=== PATIENT | female | born 1975 | race Caucasian/White ===

== ENCOUNTER 2021-10-01 04:40 | Emergency (ER) | payer MEDICAID ==
[~2021-10-01] VITALS: Ht 165.1 cm; Wt 61.4 kg
[2021-10-01 04:44] VITALS: BP 120/90
--- NOTE | 2021-10-01 06:29 | NUR ---
PT SEEN IN TRIAGE BY DR. PEREZ.
[2021-10-01] MEDS ORDERED: ibuprofen tablet 400 MG TABLET PO ONE (06:35)
== END 2021-10-01 06:41 | disposition home or self-care (01) ==
LOC: ER 04:42
DX: F15.10 Other stimulant abuse, uncomplicated (principal); M54.50 Low back pain, unspecified; G89.29 Other chronic pain; F12.90 Cannabis use, unspecified, uncomplicated; Z56.0 Unemployment, unspecified; Z59.00 Homelessness unspecified; Z72.89 Other problems related to lifestyle; Z88.0 Allergy status to penicillin
CPT/HCPCS: 99282

== ENCOUNTER 2021-11-02 23:09 | Emergency (ER) | payer MEDICAID ==
[~2021-11-02] VITALS: Ht 172.7 cm; Wt 75.0 kg
[2021-11-02 23:26] VITALS: BP 106/45
== END 2021-11-02 23:44 | disposition home or self-care (01) ==
LOC: ER 23:09
DX: F15.10 Other stimulant abuse, uncomplicated (principal); G89.29 Other chronic pain; F12.90 Cannabis use, unspecified, uncomplicated; Z59.00 Homelessness unspecified; Z56.0 Unemployment, unspecified; Z72.89 Other problems related to lifestyle; Z88.0 Allergy status to penicillin
CPT/HCPCS: 99283

== ENCOUNTER 2021-12-20 12:29 | Emergency (ER) | payer MEDICAID ==
[~2021-12-20] VITALS: Ht 167.6 cm; Wt 63.0 kg
[2021-12-20 13:27] VITALS: BP 103/71
[2021-12-20] MEDS ORDERED: LIDOcaine 1% W/epiNEPHrine 1:100,000 20ml vial IJ ONE (15:15)
[2021-12-20] MEDS ORDERED: TETanus/Pertussis (Acell)/Diphther VAC/PF (Tdap-Adult) 0.5ml syringe IMVAC ONE (15:15)
[2021-12-20] MEDS ORDERED: sulfamethoxazole/trimethoprim DS (800/160mg) tablet PO ONE (15:15)
--- NOTE | 2021-12-20 15:25 | NUR ---
po med given im given liodcane placed on bedside table for er provider
[2021-12-20] MEDS ORDERED: SULF1TAB45 PO (15:50)
[2021-12-20] MEDS ORDERED: acetaminophen 325mg tablet PO ONE (15:55)
[2021-12-20] MEDS ORDERED: FLUT16SP2 BOTHNARES (15:56)
== END 2021-12-20 16:38 | disposition home or self-care (01) ==
LOC: ER 12:29
DX: M71.011 Abscess of bursa, right shoulder (principal); M71.051 Abscess of bursa, right hip; G89.29 Other chronic pain; M54.50 Low back pain, unspecified; F12.90 Cannabis use, unspecified, uncomplicated; F15.20 Other stimulant dependence, uncomplicated; Z88.0 Allergy status to penicillin; Z59.00 Homelessness unspecified; Z56.0 Unemployment, unspecified
CPT/HCPCS: 10061; 90471; 90715; 99284; J3490; A6449

== ENCOUNTER 2021-12-21 15:54 | Emergency (ER) | payer MEDICAID ==
[~2021-12-21] VITALS: Ht 167.6 cm; Wt 63.6 kg
[~2021-12-21 15:54] MED LIST: FLUT16SP2 BOTHNARES; SULF1TAB45 PO
[2021-12-21 16:49] VITALS: BP 116/70
[2021-12-21] MEDS ORDERED: sulfamethoxazole/trimethoprim DS (800/160mg) tablet PO ONE (16:55)
== END 2021-12-21 18:15 | disposition home or self-care (01) ==
LOC: ER 15:55
DX: Z48.00 Encounter for change or removal of nonsurgical wound dressing (principal); G89.29 Other chronic pain; M54.50 Low back pain, unspecified; F12.90 Cannabis use, unspecified, uncomplicated; F15.20 Other stimulant dependence, uncomplicated; Z88.0 Allergy status to penicillin; Z59.00 Homelessness unspecified; Z56.0 Unemployment, unspecified
CPT/HCPCS: 99283

== ENCOUNTER 2022-01-10 20:55 | Emergency (ER) | payer MEDICAID ==
[~2022-01-10] VITALS: Ht 167.6 cm; Wt 60.7 kg
[~2022-01-10 20:55] MED LIST changes: -SULF1TAB45 PO
[2022-01-10 21:25] VITALS: BP 117/64
--- NOTE | 2022-01-10 22:33 | NUR ---
PA ENTERED ROOM PT NOT IN ROOM
== END 2022-01-10 22:59 | disposition left against medical advice (07) ==
LOC: ER 20:56
DX: H92.09 Otalgia, unspecified ear (principal); Z53.21 Procedure and treatment not carried out due to patient leaving prior to being seen by health care provider

== ENCOUNTER 2022-05-19 17:18 | Emergency (ER) | payer MEDICAID ==
--- NOTE | 2022-05-19 17:37 | NUR ---
NOT IN LOBBY AT THIS TIME.
== END 2022-05-19 18:41 | disposition left against medical advice (07) ==
LOC: ER 17:19
DX: R10.9 Unspecified abdominal pain (principal); Z53.21 Procedure and treatment not carried out due to patient leaving prior to being seen by health care provider

== ENCOUNTER 2022-10-01 06:04 | Emergency (ER) | payer MEDICAID ==
[~2022-10-01] VITALS: Ht 172.7 cm; Wt 61.4 kg
[2022-10-01 06:09] VITALS: BP 125/89
== END 2022-10-01 08:55 | disposition home or self-care (01) ==
LOC: ER 06:04
DX: L02.212 Cutaneous abscess of back [any part, except buttock and flank] (principal); Z53.21 Procedure and treatment not carried out due to patient leaving prior to being seen by health care provider
CPT/HCPCS: 99281

== ENCOUNTER 2022-10-16 08:05 | Emergency (ER) | payer MEDICAID | END 2022-10-16 09:12 | disposition left against medical advice (07) | LOC: ER 08:06 | DX: M79.643 Pain in unspecified hand (principal); Z53.21 Procedure and treatment not carried out due to patient leaving prior to being seen by health care provider ==

== ENCOUNTER 2022-10-17 01:05 | Emergency (ER) | payer MEDICAID | END 2022-10-17 01:50 | disposition left against medical advice (07) | LOC: ER 01:06 | DX: M79.641 Pain in right hand (principal); Z53.21 Procedure and treatment not carried out due to patient leaving prior to being seen by health care provider ==

== ENCOUNTER 2022-10-17 05:50 | Emergency (ER) | payer MEDICAID | END 2022-10-17 07:18 | disposition left against medical advice (07) | LOC: ER 05:51 | DX: M79.643 Pain in unspecified hand (principal); Z53.21 Procedure and treatment not carried out due to patient leaving prior to being seen by health care provider ==

== ENCOUNTER 2022-10-17 11:01 | Emergency (ER) | payer MEDICAID ==
[~2022-10-17] VITALS: Ht 167.6 cm; Wt 59.1 kg
[2022-10-17 11:11] VITALS: BP 130/82
== END 2022-10-17 13:34 | disposition left against medical advice (07) ==
LOC: ER 11:02
DX: M79.641 Pain in right hand (principal); M79.645 Pain in left finger(s); Z53.21 Procedure and treatment not carried out due to patient leaving prior to being seen by health care provider
CPT/HCPCS: 99281

== ENCOUNTER 2022-11-12 12:58 | Emergency (ER) | payer MEDICAID | END 2022-11-12 14:45 | disposition left against medical advice (07) | LOC: ER 12:59 | DX: L08.89 Other specified local infections of the skin and subcutaneous tissue (principal); Z53.21 Procedure and treatment not carried out due to patient leaving prior to being seen by health care provider ==

== ENCOUNTER 2022-11-18 05:11 | Emergency (ER) | payer MEDICAID ==
[~2022-11-18] VITALS: Ht 170.2 cm; Wt 55.8 kg
[2022-11-18 05:15] VITALS: BP 109/81
== END 2022-11-18 08:19 | disposition left against medical advice (07) ==
LOC: ER 05:11
DX: M54.59 Other low back pain (principal); Z53.21 Procedure and treatment not carried out due to patient leaving prior to being seen by health care provider
CPT/HCPCS: 99281

== ENCOUNTER 2022-11-19 23:23 | Inpatient (IN) | payer MEDICAID ==
[~2022-11-19] VITALS: Ht 170.2 cm; Wt 52.0 kg
[2022-11-20] MEDS ORDERED: vancomycin/NS 1 GM ADD-VANTAGE 250 ML IV ONE (00:35)
[2022-11-20 01:01] LABS: BASOPHILS # (AUTO) 0.1 X10'3 (0-0.2); BASOPHILS % (AUTO) 1.1 % (0-1); EOSINOPHILS # (AUTO) 0.2 X10'3 (0-0.9); HEMATOCRIT 31.7 % (35.0-45.0); HEMOGLOBIN 10.2 g/dl (12.0-16.0); LYMPHOCYTES % (AUTO) 28.3 % (21-51); MEAN CORPUSCULAR HEMOGLOBIN 28.6 PG (27.0-31.0); MEAN CORPUSCULAR HGB CONC 32.3 g/dL (33.0-36.5); MEAN CORPUSCULAR VOLUME 88.6 FL (78-98); MEAN PLATELET VOLUME 6.6 FL (7.4-10.4); MONOCYTES # (AUTO) 0.6 X10'3 (0-0.9); NEUTROPHILS # (AUTO) 6.7 X10'3 (1.8-7.7); NEUTROPHILS % (AUTO) 62.6 % (42-75); PLATELET COUNT 378 X10'3 (140-440); RED BLOOD COUNT 3.57 X10'6 (4.20-5.60); RED CELL DISTRIBUTION WIDTH 15.3 % (11.5-14.5); WHITE BLOOD COUNT 10.7 X10'3 (4.5-11.0)
[2022-11-20 01:15] LABS: ALANINE AMINOTRANSFERASE 15 U/L (12-78); ALBUMIN 2.3 G/DL (3.4-5.0); ALBUMIN/GLOBULIN RATIO 0.6 (1.1-1.5); ALKALINE PHOSPHATASE 70 IU/L (46-116); ANION GAP 8 (8-16); ASPARTATE AMINO TRANSFERASE 14 U/L (10-37); BILIRUBIN,TOTAL 0.2 MG/DL (0.1-1.0); BLOOD UREA NITROGEN 20 MG/DL (7-18); BUN/CREATININE RATIO 27.4 (10.0-20.0); CALCIUM 8.5 MG/DL (8.5-10.1); CHLORIDE 102 MMOL/L (99-107); CREATININE 0.73 MG/DL (0.40-0.90); GLUCOSE 99 MG/DL (70-104); POTASSIUM 4.5 MMOL/L (3.5-5.1); SODIUM 140 MMOL/L (135-145); eGFR 85 ML/MIN
[2022-11-20] MEDS ORDERED: HYDROmorphone 2mg tablet PO PRN (01:15)
[2022-11-20 01:19] LABS: ETHANOL < 0.010 GM/DL (0.0-0.010)
--- NOTE | 2022-11-20 01:30 | NUR ---
PT BLEEDING AND SATURATING DRESSING ON SACRUM.
--- NOTE | 2022-11-20 02:10 | NUR ---
wound vac placed to [facility] wound per dr sousa request. pt had wound vac placed at [facility] and removed it when she left [facility]. settings to 125mmHg continuous per dr pearl request. dr pearl at bedside.
--- NOTE | 2022-11-20 02:12 | NUR ---
wound pic taken, see chart.
--- NOTE | 2022-11-20 02:15 | NUR ---
pt states wound vac was off 10 min and drove from [facility] directly here.
--- NOTE | 2022-11-20 03:00 | NUR ---
PT UP TO COMMODE, MOVES WELL BY SELF, JUST NEEDS STANDBY FOR CORD MANAGEMENT.
[2022-11-20 03:32] LABS: CLARITY,URINE CLEAR (Clear); COLOR,URINE YELLOW (Yellow); GLUCOSE, URINE NEGATIVE (Neg); KETONES,URINE NEGATIVE (Neg); LEUKOCYTE ESTERASE ,URINE NEGATIVE (Neg); NITRITES, URINE NEGATIVE (Neg); OCCULT BLOOD,URINE SMALL (Neg); PROTEIN,URINE NEGATIVE (Neg); UROBILINOGEN,URINE 0.2 E.U/dL (0.2-1.0)
[2022-11-20 03:41] LABS: UA COLLECTION TYPE OTHER
[2022-11-20 03:43] LABS: BACTERIA,URINE FEW /HPF (Neg); RBC,URINE 0-2 /HPF (0-2); WBC,URINE 0-4 /HPF (0-4)
[2022-11-20 03:44] LABS: SQUAMOUS EPITHELIAL CELL,UR MODERATE /LPF (FEW); WBC CLUMPS,URINE FEW /HPF (NEGATIVE)
[2022-11-20 03:49] LABS: URINE AMPHETAMINE SCREEN NEGATIVE (Neg); URINE BARBITUATE SCREEN NEGATIVE (Neg); URINE BENZODIAZEPINES SCREEN NEGATIVE (Neg); URINE CANNABINOID SCREEN NEGATIVE (Neg); URINE COCAINE SCREEN NEGATIVE (Neg); URINE METHADONE SCREEN NEGATIVE (Neg); URINE OPIATE SCREEN POSITIVE (Neg); URINE PHENCYCLIDINE SCREEN NEGATIVE (Neg)
[2022-11-20] MEDS ORDERED: ibuprofen tablet 400 MG TABLET PO ONE (03:50)
--- NOTE | 2022-11-20 03:51 | NUR ---
PT REQUESTED PAIN MEDICATION, RECIEVED ORDER FOR 800MG PO IBUPROFEN.
--- NOTE | 2022-11-20 03:51 | NUR ---
RECORDS RECIEVED FROM DR CHRIS HAZEL.
--- NOTE | 2022-11-20 04:13 | NUR ---
PT REFUSED IBUPROFEN AND STATED "WOULD NOT HELP THE PAIN". PT ALSO STATES FEELING VERY ANXIOUS AND REQUESTING SOMETHING FOR ANXIETY. DR PEREZ NOTIFIED, AWAITING ORDERS.
--- NOTE | 2022-11-20 04:18 | NUR ---
VERBAL ORDER FROM DR PEREZ RECIEVED FOR 1MG PO ATIVAN ONCE.
[2022-11-20] MEDS ORDERED: LORazepam 1 MG tablet PO ONE (04:20)
[2022-11-20] MEDS ORDERED: potassium Cl 20 mEq SR tablet PO PRN ×2 (04:35)
[2022-11-20] MEDS ORDERED: acetaminophen 325mg tablet PO PRN (04:35)
[2022-11-20] MEDS ORDERED: morphine 2 MG/ML inj. syringe IV PRN (04:35)
[2022-11-20] MEDS ORDERED: magnesium 2GM in 50ml NS 50 ML IV PRN (04:35)
[2022-11-20] MEDS ORDERED: ondansetron/PF 4mg/2ml inj IV PRN (04:35)
[2022-11-20] MEDS ORDERED: magnesium Cl slow-release 64mg tablet PO PRN (04:35)
[2022-11-20] MEDS ORDERED: magnesium 4gm in 100ml NS 100 ML IV PRN (04:35)
[2022-11-20] MEDS ORDERED: mag hydrox/Alum hydrox/simeth 30ml oral suspension PO PRN (04:35)
[2022-11-20] MEDS ORDERED: potassium Cl 40MEQ/1/2NS 520ml 520 ML IV PRN (04:35)
--- NOTE | 2022-11-20 04:36 | NUR ---
PT REQUESTING SNACK, PER DR PEREZ, OK TO GIVE PT A SNACK. DR YEE NOTIFIED OF PT REQUESTING PAIN MEDICATION.
[2022-11-20 04:49] LABS: MAGNESIUM 1.7 MG/DL (1.5-2.4)
[2022-11-20] MEDS: normal saline 1000ml 1,000 ML IV SCH (05:20)
--- NOTE | 2022-11-20 06:18 | NUR ---
ATTEMPTED TO CALL REPORT TO FLOOR. DAY SHIFT FLOOR NURSE UNABLE TO TAKE REFUSING TO TAKE REPORT AT THIS TIME DUE TO SHIFT CHANGE.
--- NOTE | 2022-11-20 06:43 | NUR ---
Patient in room ED 1. I have received report from vanessa langston and had the opportunity to ask questions and assume patient care.
[2022-11-20 07:00] VITALS: BP 101/68
[2022-11-20] MEDS: K and/or MAG REPLACEMENT MC SCH ×2 (08:00→20:00)
[2022-11-20] MEDS: docusate sod 100mg capsule PO SCH ×2 (09:10→20:55)
[2022-11-20] MEDS: heparin, porcine 5000 units/ml vial SQ SCH ×2 (09:11→20:55)
[2022-11-20] MEDS: HYDROcodone/acetaminophen 10/325mg tab PO PRN ×3 (09:24→18:47)
[2022-11-20 10:00] VITALS: BP 117/69
--- NOTE | 2022-11-20 11:10 | NUR ---
pt has a wound vac on sacrum unable to see full wound bed, unable to take picture, wound care will see pt tomorrow. charge nurse was notified
--- NOTE | 2022-11-20 12:53 | NUR ---
Initial: Pt admit DX sacral wound for wound recheck s/p large pilonidal cyst removal at [facility] one day [employer] w/ wound vac in place per EMR. Noted BMI 18.0 via chair scale this admit w/ no prior scaled wt hx and fluctuating height hx 66-68in per EMR. PO pending first regular diet meals this admit. Noted pt hx T2DM diet controlled though no A1C hx and Glu WNL this admit. RD attempted to see pt at bedside however pt unable to stay awake during interview. Pt w/ no obvious muscle/fat wasting evident during RD visit. RD d/w RN recommends Ben smoothie BID if MD agreeable for wound healing needs. LBM 11/18 receiving routine colace per EMR. Will monitor for further nutrition intervention needs this admit. Rec: 1. continue regular diet; encourage PO 2. Ben smoothie BID for wound healing; pending MD orders in EMR if agreeable 3. monitor further PO trends for ONS adjustment needs 4. routine bowel care 5. weekly wts Addendum: 11/20/22 at [address] Amended: Links added.
[2022-11-20] MEDS: vancomycin/NS 1 GM ADD-VANTAGE 250 ML IV SCH (14:47)
[2022-11-20] MEDS ORDERED: RISP1TAB98 PO (16:16)
[2022-11-20] MEDS ORDERED: TOPI25TA15 PO (16:16)
[2022-11-20] MEDS ORDERED: LITH300C PO (16:16)
[2022-11-20] MEDS ORDERED: FLUT16SP13 BOTHNARES (16:16)
[2022-11-20] MEDS ORDERED: AMPH30TA3 PO (16:45)
[2022-11-20] MEDS ORDERED: AMPH30CA3 PO (16:45)
[2022-11-20] MEDS ORDERED: DILANTIN PO (16:46)
[2022-11-20] MEDS: morphine 2 MG/ML inj. syringe IV PRN ×2 (16:52→20:57)
--- NOTE | 2022-11-20 17:54 | NUR ---
pt wound vac showed small leak and i reinforced it, pt needs to lay on her side in order to not occlude tubing. all day the wound vac has been working at the settings of 125mmg. charge nurse was made aware and looked and pt wound vac looks great.
[2022-11-20 18:00] VITALS: BP 103/63
--- NOTE | 2022-11-20 18:35 | NUR ---
Problems reprioritized. Patient report given, questions answered & plan of care reviewed with JAIRO PEDRO.
[2022-11-20] MEDS: LORazepam 1 MG tablet PO PRN (18:44)
[2022-11-20] MEDS: magnesium hydroxide 30ml (MOM) UD suspension PO PRN (20:55)
[2022-11-20 22:00] VITALS: BP 97/65
[2022-11-21] MEDS: HYDROcodone/acetaminophen 10/325mg tab PO PRN ×4 (00:29→19:53)
[2022-11-21] MEDS ORDERED: VANCOMYCIN LEVEL IV ONE ×2 (00:30→12:30)
[2022-11-21] MEDS: normal saline 1000ml 1,000 ML IV SCH ×2 (00:35→20:35)
[2022-11-21] MEDS: vancomycin/NS 1 GM ADD-VANTAGE 250 ML IV SCH ×2 (00:37→14:36)
[2022-11-21] MEDS: morphine 2 MG/ML inj. syringe IV PRN ×5 (02:34→21:56)
[2022-11-21] MEDS: LORazepam 1 MG tablet PO PRN ×2 (04:08→11:02)
[2022-11-21 04:31] LABS: BASOPHILS % (AUTO) 0.2 % (0-1); EOSINOPHILS # (AUTO) 0.3 X10'3 (0-0.9); EOSINOPHILS % (AUTO) 4.4 % (0-6); HEMATOCRIT 35.5 % (35.0-45.0); HEMOGLOBIN 11.5 g/dl (12.0-16.0); LYMPHOCYTES # (AUTO) 2.5 X10'3 (1.1-4.8); LYMPHOCYTES % (AUTO) 32.4 % (21-51); MEAN CORPUSCULAR HEMOGLOBIN 28.7 PG (27.0-31.0); MEAN CORPUSCULAR HGB CONC 32.5 g/dL (33.0-36.5); MEAN CORPUSCULAR VOLUME 88.4 FL (78-98); MONOCYTES # (AUTO) 0.5 X10'3 (0-0.9); NEUTROPHILS # (AUTO) 4.5 X10'3 (1.8-7.7); PLATELET COUNT 465 X10'3 (140-440); RED BLOOD COUNT 4.01 X10'6 (4.20-5.60); RED CELL DISTRIBUTION WIDTH 15.5 % (11.5-14.5); WHITE BLOOD COUNT 7.8 X10'3 (4.5-11.0)
[2022-11-21 04:52] LABS: ALANINE AMINOTRANSFERASE 16 U/L (12-78); ALBUMIN 2.4 G/DL (3.4-5.0); ALBUMIN/GLOBULIN RATIO 0.6 (1.1-1.5); ALKALINE PHOSPHATASE 73 IU/L (46-116); ANION GAP 4 (8-16); ASPARTATE AMINO TRANSFERASE 17 U/L (10-37); BILIRUBIN,TOTAL 0.2 MG/DL (0.1-1.0); BLOOD UREA NITROGEN 15 MG/DL (7-18); BUN/CREATININE RATIO 21.7 (10.0-20.0); CALCIUM 8.5 MG/DL (8.5-10.1); CHLORIDE 102 MMOL/L (99-107); CREATININE 0.69 MG/DL (0.40-0.90); GLUCOSE 85 MG/DL (70-104); MAGNESIUM 2.1 MG/DL (1.5-2.4); POTASSIUM 4.6 MMOL/L (3.5-5.1); SODIUM 141 MMOL/L (135-145); TOTAL PROTEIN 6.3 G/DL (6.4-8.2); eGFR 90 ML/MIN
[2022-11-21 06:00] VITALS: BP 96/61
--- NOTE | 2022-11-21 06:29 | NUR ---
Problems reprioritized. Patient report given, questions answered & plan of care reviewed with STEFFI LAWSON.
--- NOTE | 2022-11-21 06:48 | NUR ---
Patient in room ORTHO 4022. I have received report from MAYELA Sal and had the opportunity to ask questions and assume patient care.
[2022-11-21] MEDS: heparin, porcine 5000 units/ml vial SQ SCH (07:52)
[2022-11-21] MEDS: docusate sod 100mg capsule PO SCH ×2 (07:52→19:51)
[2022-11-21] MEDS: K and/or MAG REPLACEMENT MC SCH ×2 (08:00→20:00)
[2022-11-21 10:00] VITALS: BP 89/59
[2022-11-21] MEDS ORDERED: fluticasone nasal spray 16GM bottle NS PRN (10:55)
--- NOTE | 2022-11-21 12:13 | NUR ---
WOUND VAC EDUCATION PROVIDED BY WOUND CARE 1. Patient instructed to call the Wound Center or their Home Health Agency immediately if: * They notice a change in the color or amount of the fluid in the canister. * Their wound looks more red than usual or has a foul smell. * The skin around their wound looks reddened or irritated. * The dressing feels loose or appears to be loose. * They experience any increase or changes in their pain. * The alarm will not turn off. 2. Patient instructed that they should not be disconnected from suction for more than 2 hours at a time. * If they are not able to get the suction back on, they need to remove the dressing and take all of the foam out of the wound. * Then moisten sterile gauze with normal saline and place on/in the wound. * Change the dressing once a day until arrangements have been made to replace the wound vac dressing. 3. Patient instructed to turn the wound vac machine OFF and call 911 or go to the ED immediately if their canister fills rapidly with blood. 4. If any of these occur while in the hospital tell a nurse immediately. Addendum: 11/21/22 at 1213 by Jaimee Arthur LVN Amended: Links added.
[2022-11-21] MEDS ORDERED: morphine 2 MG/ML inj. syringe IV PRN (15:25)
[2022-11-21 18:00] VITALS: BP 98/53
--- NOTE | 2022-11-21 19:00 | NUR ---
Patient in room ORTHO 4022. I have received report from Claire RN and had the opportunity to ask questions and assume patient care.
[2022-11-21] MEDS: lithium carbonate 150mg capsule PO SCH (19:52)
[2022-11-21] MEDS: risperiDONE 0.5mg tablet PO SCH (19:52)
[2022-11-21] MEDS: topiramate 25mg tablet PO SCH (19:52)
[2022-11-21] MEDS: magnesium hydroxide 30ml (MOM) UD suspension PO PRN (20:05)
[2022-11-21 22:00] VITALS: BP 104/52
[2022-11-22] MEDS ORDERED: VANCOMYCIN LEVEL IV ONE (00:30)
--- NOTE | 2022-11-22 00:35 | NUR ---
Patient refused for vanco trough to be drawn "no more blood , we are going to skip it". Tried to educate but patient not interested or compliant. Called pharmacy who said still hang the vanco.
[2022-11-22] MEDS: vancomycin/NS 1 GM ADD-VANTAGE 250 ML IV SCH ×2 (00:39→12:54)
[2022-11-22] MEDS: normal saline 1000ml 1,000 ML IV SCH (00:45)
[2022-11-22] MEDS: HYDROcodone/acetaminophen 10/325mg tab PO PRN ×5 (00:57→22:37)
[2022-11-22] MEDS: morphine 2 MG/ML inj. syringe IV PRN ×3 (05:04→20:07)
--- NOTE | 2022-11-22 05:11 | NUR ---
Patients PiV infiltrated. Removed.
[2022-11-22 06:00] VITALS: BP 92/62
[2022-11-22 06:18] LABS: BASOPHILS # (AUTO) 0.1 X10'3 (0-0.2); BASOPHILS % (AUTO) 1.2 % (0-1); EOSINOPHILS # (AUTO) 0.3 X10'3 (0-0.9); EOSINOPHILS % (AUTO) 3.6 % (0-6); HEMATOCRIT 34.8 % (35.0-45.0); HEMOGLOBIN 11.2 g/dl (12.0-16.0); LYMPHOCYTES # (AUTO) 2.4 X10'3 (1.1-4.8); LYMPHOCYTES % (AUTO) 24.8 % (21-51); MEAN CORPUSCULAR HEMOGLOBIN 28.5 PG (27.0-31.0); MEAN CORPUSCULAR HGB CONC 32.3 g/dL (33.0-36.5); MEAN CORPUSCULAR VOLUME 88.2 FL (78-98); MEAN PLATELET VOLUME 6.8 FL (7.4-10.4); MONOCYTES # (AUTO) 0.7 X10'3 (0-0.9); MONOCYTES % (AUTO) 6.8 % (2-12); NEUTROPHILS % (AUTO) 63.6 % (42-75); PLATELET COUNT 456 X10'3 (140-440); RED BLOOD COUNT 3.95 X10'6 (4.20-5.60); RED CELL DISTRIBUTION WIDTH 15.1 % (11.5-14.5); WHITE BLOOD COUNT 9.5 X10'3 (4.5-11.0)
[2022-11-22 06:23] LABS: ALANINE AMINOTRANSFERASE 21 U/L (12-78); ALBUMIN 2.3 G/DL (3.4-5.0); ALBUMIN/GLOBULIN RATIO 0.6 (1.1-1.5); ALKALINE PHOSPHATASE 74 IU/L (46-116); ANION GAP 3 (8-16); ASPARTATE AMINO TRANSFERASE 27 U/L (10-37); BILIRUBIN,TOTAL 0.2 MG/DL (0.1-1.0); BLOOD UREA NITROGEN 17 MG/DL (7-18); BUN/CREATININE RATIO 20.2 (10.0-20.0); CALCIUM 8.4 MG/DL (8.5-10.1); CHLORIDE 101 MMOL/L (99-107); CREATININE 0.84 MG/DL (0.40-0.90); GLUCOSE 172 MG/DL (70-104); MAGNESIUM 2.3 MG/DL (1.5-2.4); POTASSIUM 4.1 MMOL/L (3.5-5.1); SODIUM 135 MMOL/L (135-145); TOTAL CARBON DIOXIDE 31.4 MMOL/L (24-32); TOTAL PROTEIN 6.3 G/DL (6.4-8.2); VANCOMYCIN,TROUGH 18.7 UG/ML (6.0-14.0); eGFR 72 ML/MIN
--- NOTE | 2022-11-22 06:35 | NUR ---
Report given to Halima KAPADIA
[2022-11-22] MEDS: lithium carbonate 150mg capsule PO SCH ×2 (08:00→20:10)
[2022-11-22] MEDS: K and/or MAG REPLACEMENT MC SCH ×2 (08:00→20:00)
[2022-11-22] MEDS: docusate sod 100mg capsule PO SCH ×2 (08:47→20:10)
--- NOTE | 2022-11-22 09:01 | NUR ---
PAGER ID: [phone] MESSAGE: [phone] Rk Henao- patient was found outside by security, escorted back inside. states she went outside to meet with a friend that she had been worried about and wanted seen in the er.
[2022-11-22 10:00] VITALS: BP 91/50
[2022-11-22] MEDS: LORazepam 1 MG tablet PO PRN (10:17)
--- NOTE | 2022-11-22 17:30 | NUR ---
I have reviewed and agree with interventions, assessments, and documentation by Halima Quijano LVN.
[2022-11-22 18:00] VITALS: BP 92/58
--- NOTE | 2022-11-22 19:00 | NUR ---
Patient in room ORTHO 4022. I have received report from Harvinder KAPADIA and had the opportunity to ask questions and assume patient care.
[2022-11-22] MEDS: topiramate 25mg tablet PO SCH (20:12)
[2022-11-22] MEDS: nicotine 7mg patch - 24hr TD SCH (20:12)
[2022-11-22] MEDS: risperiDONE 0.5mg tablet PO SCH (20:13)
[2022-11-22 22:00] VITALS: BP 98/53
[2022-11-23] MEDS: morphine 2 MG/ML inj. syringe IV PRN ×5 (01:23→19:25)
[2022-11-23] MEDS: normal saline 1000ml 1,000 ML IV SCH (01:29)
[2022-11-23] MEDS: vancomycin/NS 1 GM ADD-VANTAGE 250 ML IV SCH ×2 (01:30→13:41)
[2022-11-23] MEDS: HYDROcodone/acetaminophen 10/325mg tab PO PRN ×5 (03:31→23:59)
[2022-11-23 06:20] LABS: BASOPHILS # (AUTO) 0.1 X10'3 (0-0.2); BASOPHILS % (AUTO) 0.8 % (0-1); EOSINOPHILS # (AUTO) 0.5 X10'3 (0-0.9); EOSINOPHILS % (AUTO) 6.7 % (0-6); HEMATOCRIT 32.7 % (35.0-45.0); HEMOGLOBIN 10.7 g/dl (12.0-16.0); LYMPHOCYTES # (AUTO) 2.1 X10'3 (1.1-4.8); LYMPHOCYTES % (AUTO) 26.7 % (21-51); MEAN CORPUSCULAR HEMOGLOBIN 28.8 PG (27.0-31.0); MEAN CORPUSCULAR HGB CONC 32.7 g/dL (33.0-36.5); MEAN PLATELET VOLUME 6.7 FL (7.4-10.4); MONOCYTES # (AUTO) 0.6 X10'3 (0-0.9); MONOCYTES % (AUTO) 7.8 % (2-12); NEUTROPHILS # (AUTO) 4.6 X10'3 (1.8-7.7); PLATELET COUNT 393 X10'3 (140-440); RED BLOOD COUNT 3.72 X10'6 (4.20-5.60); RED CELL DISTRIBUTION WIDTH 14.9 % (11.5-14.5); WHITE BLOOD COUNT 7.9 X10'3 (4.5-11.0)
[2022-11-23 06:27] LABS: ALANINE AMINOTRANSFERASE 31 U/L (12-78); ALBUMIN 2.3 G/DL (3.4-5.0); ALBUMIN/GLOBULIN RATIO 0.6 (1.1-1.5); ALKALINE PHOSPHATASE 67 IU/L (46-116); ANION GAP 6 (8-16); ASPARTATE AMINO TRANSFERASE 34 U/L (10-37); BILIRUBIN,TOTAL 0.1 MG/DL (0.1-1.0); BLOOD UREA NITROGEN 21 MG/DL (7-18); BUN/CREATININE RATIO 30.4 (10.0-20.0); CALCIUM 8.9 MG/DL (8.5-10.1); CHLORIDE 103 MMOL/L (99-107); CREATININE 0.69 MG/DL (0.40-0.90); GLUCOSE 92 MG/DL (70-104); MAGNESIUM 1.9 MG/DL (1.5-2.4); POTASSIUM 4.3 MMOL/L (3.5-5.1); SODIUM 137 MMOL/L (135-145); TOTAL CARBON DIOXIDE 28.4 MMOL/L (24-32); TOTAL PROTEIN 6.2 G/DL (6.4-8.2); eGFR 90 ML/MIN
--- NOTE | 2022-11-23 06:50 | NUR ---
Patient report given to Jena PEDRO
[2022-11-23 07:00] VITALS: BP 94/53
[2022-11-23] MEDS: lithium carbonate 150mg capsule PO SCH ×2 (07:53→19:24)
[2022-11-23] MEDS: docusate sod 100mg capsule PO SCH ×2 (07:53→19:24)
[2022-11-23] MEDS: nicotine 7mg patch - 24hr TD SCH (07:53)
[2022-11-23] MEDS: LORazepam 1 MG tablet PO PRN ×2 (07:57→19:28)
[2022-11-23] MEDS: K and/or MAG REPLACEMENT MC SCH ×2 (08:00→20:00)
[2022-11-23 10:00] VITALS: BP 94/58
--- NOTE | 2022-11-23 11:43 | NUR ---
Reassessment: An HbA1c was obtained, resulted as 5.6%. If pt with T2DM this is well controlled and DM education and a CHO controlled diet is not warranted. Pt continues on regular diet and eating well, documented with 100% PO intake since admit meeting estimated nutrient needs. LBM 11/22 per EMR, receiving routine and PRN bowel care. Will continue to follow and make recommendations as appropriate. Recommendations: 1. Continue regular diet 2. Ben smoothie BID for wound healing; pending order in EMR if physician agreeable 3. Routine bowel care 4. Weekly scaled wts Addendum: 11/23/22 at [address] Amended: Links added.
--- NOTE | 2022-11-23 13:58 | NUR ---
WOUND VAC EDUCATION PROVIDED BY WOUND CARE 1. Patient instructed to call the Wound Center or their Home Health Agency immediately if: * They notice a change in the color or amount of the fluid in the canister. * Their wound looks more red than usual or has a foul smell. * The skin around their wound looks reddened or irritated. * The dressing feels loose or appears to be loose. * They experience any increase or changes in their pain. * The alarm will not turn off. 2. Patient instructed that they should not be disconnected from suction for more than 2 hours at a time. * If they are not able to get the suction back on, they need to remove the dressing and take all of the foam out of the wound. * Then moisten sterile gauze with normal saline and place on/in the wound. * Change the dressing once a day until arrangements have been made to replace the wound vac dressing. 3. Patient instructed to turn the wound vac machine OFF and call 911 or go to the ED immediately if their canister fills rapidly with blood. 4. If any of these occur while in the hospital tell a nurse immediately. Addendum: 11/23/22 at 1359 by Jaimee Arthur LVN Amended: Links added.
[2022-11-23 18:00] VITALS: BP 100/62
--- NOTE | 2022-11-23 18:41 | NUR ---
Patient in room ORTHO 4022. I have received report from Jena PEDRO and had the opportunity to ask questions and assume patient care.
--- NOTE | 2022-11-23 19:39 | NUR ---
patient medicated q2-4hrly for pain. wound vac changed by wound team. report given to lAly KAPADIA
[2022-11-23] MEDS: risperiDONE 0.5mg tablet PO SCH (20:11)
[2022-11-23] MEDS: topiramate 25mg tablet PO SCH (20:11)
--- NOTE | 2022-11-23 21:34 | NUR ---
focused assessment. noted pt walking around in room. anxious, painful at center of wound vac. pain medicine given earlier and pt resports "it takes the edge off". states pain in central wound area, across to left hip and radiates down the left leg. wound vac intact, running, 125 suction, tubing clear. will continue to monitor. pulses all intact.
[2022-11-23 22:00] VITALS: BP 108/63
[2022-11-24] MEDS: vancomycin/NS 1 GM ADD-VANTAGE 250 ML IV SCH ×2 (01:55→13:09)
[2022-11-24] MEDS: HYDROcodone/acetaminophen 10/325mg tab PO PRN ×2 (05:38→15:23)
[2022-11-24] MEDS: normal saline 1000ml 1,000 ML IV SCH (05:44)
[2022-11-24 06:30] VITALS: BP 92/62
[2022-11-24 06:40] LABS: ALANINE AMINOTRANSFERASE 33 U/L (12-78); ALBUMIN 2.5 G/DL (3.4-5.0); ALBUMIN/GLOBULIN RATIO 0.6 (1.1-1.5); ALKALINE PHOSPHATASE 68 IU/L (46-116); ANION GAP 5 (8-16); ASPARTATE AMINO TRANSFERASE 31 U/L (10-37); BILIRUBIN,TOTAL 0.2 MG/DL (0.1-1.0); BLOOD UREA NITROGEN 22 MG/DL (7-18); CHLORIDE 101 MMOL/L (99-107); CREATININE 0.71 MG/DL (0.40-0.90); GLUCOSE 119 MG/DL (70-104); MAGNESIUM 1.9 MG/DL (1.5-2.4); POTASSIUM 4.2 MMOL/L (3.5-5.1); SODIUM 136 MMOL/L (135-145); TOTAL CARBON DIOXIDE 29.6 MMOL/L (24-32); TOTAL PROTEIN 6.4 G/DL (6.4-8.2); eGFR 87 ML/MIN
[2022-11-24 06:47] LABS: CALCIUM 8.5 MG/DL (8.5-10.1)
--- NOTE | 2022-11-24 07:00 | NUR ---
Patient in room ORTHO 4022. I have received report from dameon nichols and had the opportunity to ask questions and assume patient care.
[2022-11-24 07:01] LABS: BASOPHILS # (AUTO) 0.1 X10'3 (0-0.2); BASOPHILS % (AUTO) 1.2 % (0-1); EOSINOPHILS # (AUTO) 0.6 X10'3 (0-0.9); EOSINOPHILS % (AUTO) 5.7 % (0-6); HEMATOCRIT 32.8 % (35.0-45.0); HEMOGLOBIN 10.9 g/dl (12.0-16.0); LYMPHOCYTES # (AUTO) 2.2 X10'3 (1.1-4.8); LYMPHOCYTES % (AUTO) 20.8 % (21-51); MEAN CORPUSCULAR HEMOGLOBIN 29.3 PG (27.0-31.0); MEAN CORPUSCULAR HGB CONC 33.3 g/dL (33.0-36.5); MONOCYTES # (AUTO) 0.7 X10'3 (0-0.9); MONOCYTES % (AUTO) 6.6 % (2-12); NEUTROPHILS % (AUTO) 65.7 % (42-75); PLATELET COUNT 432 X10'3 (140-440); RED BLOOD COUNT 3.73 X10'6 (4.20-5.60); RED CELL DISTRIBUTION WIDTH 15.1 % (11.5-14.5); WHITE BLOOD COUNT 10.7 X10'3 (4.5-11.0)
[2022-11-24] MEDS: K and/or MAG REPLACEMENT MC SCH (08:00)
[2022-11-24] MEDS: nicotine 7mg patch - 24hr TD SCH (08:33)
[2022-11-24] MEDS: lithium carbonate 150mg capsule PO SCH (08:33)
[2022-11-24] MEDS: docusate sod 100mg capsule PO SCH (08:33)
[2022-11-24] MEDS: morphine 2 MG/ML inj. syringe IV PRN ×3 (08:34→17:44)
[2022-11-24] MEDS: LORazepam 1 MG tablet PO PRN (08:48)
[2022-11-24 10:00] VITALS: BP 105/64
--- NOTE | 2022-11-24 10:30 | NUR ---
Wound care alerted of increased pain to sacral area following NPWT dressing change yesterday, in for evaluation. The dressing continues to be adherent with drawn down foam and no apparent leaks with machine operating correctly. 30 minute trial of reduced pressure setting to -100mmHg proved to be effective for adequate pain relief. Hospitalist notified of recommendation to reduce suction setting order to -100mmHg continuous. Report was given to the primary nurse.
[2022-11-24] MEDS ORDERED: JUVEN Smoothie Arginine/Glut./Ca2+Bmb (Juven 19.3pkt) 240ml cup PO SCH (12:30)
--- NOTE | 2022-11-24 18:45 | NUR ---
Problems reprioritized. Patient report given, questions answered & plan of care reviewed with DESI EASTMAN RN.
--- NOTE | 2022-11-24 20:05 | NUR ---
CHECK PATIENT FOR HER MEDICATIONS AND FOUND NOT ON HER ROOM, IV OUT AND WOUND VAC ON THE BED. CHARGE NURSE MADE AWARE AND SECURITY INFORMED
[2022-11-25] MEDS ORDERED: SULF1TAB49 PO (17:50)
== END 2022-11-24 20:50 | disposition left against medical advice (07) | DRG 810 ==
LOC: EEVIPCON 23:24 → ER 23:24 → ED HOLD 11-20 04:35 → ORTHO 4S 11-20 07:56
PROVIDERS: ADMIT Internal Medicine; ATTEND Internal Medicine
DX: L76.22 Postprocedural hemorrhage of skin and subcutaneous tissue following other procedure (principal); E44.0 Moderate protein-calorie malnutrition; F19.10 Other psychoactive substance abuse, uncomplicated; G40.909 Epilepsy, unspecified, not intractable, without status epilepticus; L05.01 Pilonidal cyst with abscess; G89.29 Other chronic pain; Z53.21 Procedure and treatment not carried out due to patient leaving prior to being seen by health care provider; R73.03 Prediabetes; Y83.8 Other surgical procedures as the cause of abnormal reaction of the patient, or of later complication, without mention of misadventure at the time of the procedure; Y82.8 Other medical devices associated with adverse incidents; Y92.89 Other specified places as the place of occurrence of the external cause; Z88.0 Allergy status to penicillin; Z59.00 Homelessness unspecified; Z68.1 Body mass index [BMI] 19.9 or less, adult
CPT/HCPCS: 36415; 80053; 80202; 80305; 80320; 81001; 82948; 83036; 83605; 83735; 84145; 85025; 87040; 87081; 99285; A4649; A5200; A6258; A6449; G0378; J1644; J2270; J2405; J3370; J7030

== ENCOUNTER 2022-11-25 14:52 | Emergency (ER) | payer MEDICAID ==
[~2022-11-25] VITALS: Ht 170.2 cm; Wt 52.0 kg
[~2022-11-25 14:52] MED LIST changes: +DILANTIN PO; +FLUT16SP13 BOTHNARES; -FLUT16SP2 BOTHNARES; +LITH300C PO; +RISP1TAB98 PO; +TOPI25TA15 PO
[2022-11-25 17:21] VITALS: BP 142/101
[2022-11-25] MEDS ORDERED: SULF1TAB49 PO (17:50)
== END 2022-11-25 18:05 | disposition home or self-care (01) ==
LOC: ER 14:53
DX: L05.91 Pilonidal cyst without abscess (principal); G89.29 Other chronic pain; F12.90 Cannabis use, unspecified, uncomplicated; F15.90 Other stimulant use, unspecified, uncomplicated; Z56.0 Unemployment, unspecified; Z59.00 Homelessness unspecified; Z98.890 Other specified postprocedural states; Z72.89 Other problems related to lifestyle; Z79.899 Other long term (current) drug therapy; Z88.0 Allergy status to penicillin; Z48.01 Encounter for change or removal of surgical wound dressing
CPT/HCPCS: 99284; J7030; A6258; A6446; A6449

== ENCOUNTER 2024-06-27 04:20 | Emergency (ER) | payer MEDICAID, OTHER ==
[~2024-06-27] VITALS: Ht 166.4 cm; Wt 71.2 kg
[~2024-06-27 04:20] MED LIST changes: +RISP-31 PO; -RISP1TAB98 PO
[2024-06-27 04:25] VITALS: BP 142/115; PULSE 93; RESP 16; TEMP 97.8; O2SAT 99
== END 2024-06-27 05:08 | disposition left against medical advice (07) ==
LOC: ER 04:21
DX: R60.9 Edema, unspecified (principal); Z88.0 Allergy status to penicillin; Z88.8 Allergy status to other drugs, medicaments and biological substances; Z53.21 Procedure and treatment not carried out due to patient leaving prior to being seen by health care provider